=== PATIENT | female | born 1940 | race Caucasian/White ===

== ENCOUNTER 2019-02-28 06:00 | Day surgery (SDC) | payer MEDICARE, OTHER ==
[~2019-02-28] VITALS: Ht 167.6 cm; Wt 77.6 kg
[~2019-02-28 06:00] MED LIST: BYSTOLIC5 MG PO; CEFPODOXIME PR200 MG PO; COUMADIN2.5 MG PO; CYMBALTA60 MG PO; EUTHYROX112 MCG PO; EZALLOR SPRINKL20 MG PO; LOPERAMIDE2 MG PO; MIDODRINE HCL5 MG PO; PEPTO-BISM262 MG/15 PO; TYLENOL325 M1 PO; VENTOLIN HFA18 GM INH; VITAMIN D-32000 UNIT PO
--- NOTE | 2019-02-28 08:09 | NUR ---
02/28/19 0809 Anette Mckeon 0802- PT ARRIVES TO PACU NONAROUSABLE TO NOXIOUS STIMULI. RESP EVEN AND UNLABORED. OXYGEN SAT HIGH 90'S TO 100% ON 6L VIA MASK.
--- NOTE | 2019-03-02 10:32 | OR ---
[facility] [address], [place] [address] Signed DATE OF OPERATION: 02/28/2019 SURGEON: Librado Camacho MD PREOPERATIVE DIAGNOSES: 1. Chronic diarrhea. 2. Son with colon cancer in his 50s. POSTOPERATIVE DIAGNOSES: 1. 7 mm sessile polyp in proximal transverse colon (tattoo). 2. 5 mm polyp at 45 and 15 cm. 3. Icqibub-te-azbebqgy internal and external hemorrhoids. PROCEDURE: Colonoscopy with hot biopsy and random cold biopsies as well as injection of tattoo. ESTIMATED BLOOD LOSS: None. INDICATIONS: Epifanio is a 78-year-old female who had a previous stroke. She has had trouble with chronic diarrhea. However, seems worse recently. Consequently, this represents a change in bowel habits. She has been trying to use loperamide to control the diarrhea. She had been asked to see me for colonoscopy with biopsies. She thinks maybe she had a colonoscopy many years ago. She also explained that her son had colon cancer in his 50s. He seems to be doing fine now. She had come to the office with her caregiver. I gave them a pamphlet on colonoscopy. We looked at that together along with the risks including, but not limited to gas, bloating, crampy abdominal pain, bleeding, perforation requiring surgery, and missed diagnosis. We also discussed the need for IV conscious sedation. Given Epifanio's advanced age and medical issues, we asked that an anesthesia provider help us with increased monitoring and sedation with propofol. They had expressed understanding and wished to proceed. PROCEDURE NOTE: Epifanio was taken into our endoscopy suite and placed in the left lateral decubitus position. She was given IV sedation with propofol per our nurse data warehouse manager. A digital rectal exam was performed and she does have enveiop-kc-dsphqovv external hemorrhoids. The adult colonoscope was introduced and advanced all around into the cecum under direct visualization of camera without difficulty. Her prep was quite good. We could easily see the appendiceal orifice and the ileocecal valve. We had taken pictures throughout Electronically Signed By: LIBRADO CAMACHO MD 03/02/19 1032 PATIENT NAME: EPIFANIO BIRMINGHAM OPERATIVE REPORT DATE OF : 38 REPORT #: [id number] PHYSICIAN: LIBRADO CAMACHO MD PCP: UMAIR BECKWITH MD REPORT IS CONFIDENTIAL AND NOT TO BE RELEASED WITHOUT AUTHORIZATION [facility] [address] [place] [id number] Signed for photodocumentation. The scope was slowly withdrawn. We made several attempts to pass the scope into the terminal ileum without success. We had taken several biopsies throughout the colon for pathologic review. The above-mentioned polyps were easily removed with the help of hot biopsy forceps. We did inject a small tattoo next to the polypectomy site in the proximal transverse colon. We saw no diverticula. No inflammatory changes throughout the colon or rectum. Upon retroflexion of the scope, there were mryhmhi-ih-bmtzeifl internal hemorrhoids as well. After this, the gas was suctioned out and the colonoscope removed. Epifanio tolerated the procedure quite well. RECOMMENDATIONS: I will see Epifanio back in my office in 7 to 14 days to review her results. She can resume her Coumadin in 1 week. She should not take any aspirin or NSAIDs for one week. Her other chronic medications, she can resume today. Librado Camacho MD ALB/MODL /[id number] cc: MD Librado Dempsey MD Daniel C Hambleton, MD Copies: ENEIDA EDGAR MD,SHEFALI CAMACHO,WALLY SPIVEY MD, MD ~ Electronically Signed By: LIBRADO CAMACHO MD 03/02/19 1032 PATIENT NAME: EPIFANIO BIRMINGHAM OPERATIVE REPORT DATE OF : 38 REPORT #: [id number] PHYSICIAN: LIBRADO CAMACHO MD PCP: UMAIR BECKWITH MD REPORT IS CONFIDENTIAL AND NOT TO BE RELEASED WITHOUT AUTHORIZATION
--- NOTE | 2019-03-03 15:20 | PATH ---
[facility] [address] [place], [place] [address] Signed SPECIMEN(S): A COLON POLYP AT 45 CM SPECIMEN(S): B RANDOM COLON BIOPSY SPECIMEN(S): C PROXIMAL TRANSVERSE COLON BIOPSY SPECIMEN(S): D COLON POLYP AT 15 CM SPECIMEN SOURCE: A. COLON POLYP AT 45 CM B. RANDOM COLON BIOPSY C. PROXIMAL TRANSVERSE COLON BIOPSY D. COLON POLYP AT 15 CM CLINICAL HISTORY: Hx diarrhea. MICROSCOPIC DESCRIPTION: A, C, D. Histologic sections of all submitted blocks are examined by light microscopy. These findings, together with the gross examination, support the pathologic diagnosis. B. Sections reveal a biopsy of colonic mucosa. The epithelial surface is intact but has decreased mucus secreting ability. The basement membrane is not thickened. The glands are simple and tubular and reach all of the way to the muscularis mucosae. The lamina propria is minimally expanded by a population of plasma cells, lymphocytes, eosinophils and small numbers of neutrophils. One of the neutrophils extend into the mucosa proper. In a couple of areas there are excess intraepithelial lymphocytes. No ulceration, crypt abscesses, areas of fibrosis, granulomas or pseudomembranes are seen. LJA:cml FINAL PATHOLOGIC DIAGNOSIS: A. Mucosa, colon at 45 cm, biopsy: - Tubular adenoma. B. Mucosa, colon, random biopsies: - Mild active chronic colitis. (see comment) C. Mucosa, proximal transverse colon, biopsy: - Tubular adenoma with inflammatory features similar to that described above in B. D. Mucosa, colon at 15 cm, biopsy: - Tubular adenoma. COMMENT: PATIENT NAME: EPIFANIO BIRMINGHAM PATHOLOGY DATE OF : 38 REPORT #: [id number] PHYSICIAN: MELONIE COELHO PCP: UMAIR BECKWITH MD REPORT IS CONFIDENTIAL AND NOT TO BE RELEASED WITHOUT AUTHORIZATION [facility] [address] [place], [place] [address] Signed B -- The differential diagnosis includes both infectious and noninfectious causes of colitis, including microscopic colitis. Features are not consistent with Crohn's colitis or ulcerative colitis. Clinical correlation required. LJA:cml:C2NR GROSS DESCRIPTION: Four specimens are received in four containers, labeled "ELLY." A. The specimen, labeled "ELLY, colon polyp at 45 cm," is received in formalin and consists of two, 0.3 and 0.4 cm estrada fragments. Specimen is entirely submitted in cassette (A1). B. The specimen, labeled "ELLY, random colon biopsy," is received in formalin and consists of four, 0.1-0.2 cm estrada fragments. Specimen is entirely submitted in cassette (B1). C. The specimen, labeled "ELLY, proximal transverse colon biopsy," is received in formalin and consists of five, 0.2-0.3 cm estrada-brown fragments. Specimen is entirely submitted in cassette (C1). D. The specimen, labeled "ELLY, colon polyp at 15 cm," is received in formalin and consists of a single 0.3 cm estrada fragment. Specimen is entirely submitted in cassette (D1). AM (under the direct supervision of a pathologist) The Gross Description was prepared using a voice recognition system. The report was reviewed for accuracy; however, sound-alike word errors, addition and/or deletions may occur. If there is any question about this report, please contact Client Services. PERFORMING LABORATORY: The technical component was performed by [facility], [address] [place] [id number] (Wrapper Sheeter: Vanessa Rivera MD; CLIA# [id number]). Professional [facility], [address] [address] (Wrapper Sheeter: Jaleel Vee MD; CLIA# [id number]). Diagnostician: Jaleel Vee MD Pathologist Electronically Signed 03/03/2019 Copies: PATIENT NAME: EPIFANIO BIRMINGHAM PATHOLOGY DATE OF : 38 REPORT #: [id number] PHYSICIAN: MELONIE PATHOLOGY PCP: UMAIR BECKWITH MD REPORT IS CONFIDENTIAL AND NOT TO BE RELEASED WITHOUT AUTHORIZATION [facility] [address] [place], [place] [address] Signed ~ PATIENT NAME: EPIFANIO BIRMINGHAM PATHOLOGY DATE OF : 38 REPORT #: [id number] PHYSICIAN: MELONIE PATHOLOGY PCP: UMAIR BECKWITH MD REPORT IS CONFIDENTIAL AND NOT TO BE RELEASED WITHOUT AUTHORIZATION
== END 2019-02-28 08:45 | disposition home or self-care (01) ==
LOC: DS 06:00
PROVIDERS: Colon & Rectal Surgery
PROC: 0DBE8ZZ Excision of Large Intestine, Via Natural or Artificial Opening Endoscopic (ICD-10-PCS; 2019-02-28)
PROC: 3E0H8GC Introduction of Other Therapeutic Substance into Lower GI, Via Natural or Artificial Opening Endoscopic (ICD-10-PCS; 2019-02-28)
PROC: 0DBL8ZZ Excision of Transverse Colon, Via Natural or Artificial Opening Endoscopic (ICD-10-PCS; principal; 2019-02-28 06:45)
DX: D12.3 Benign neoplasm of transverse colon (principal); D12.6 Benign neoplasm of colon, unspecified; K52.9 Noninfective gastroenteritis and colitis, unspecified; K64.8 Other hemorrhoids; K64.4 Residual hemorrhoidal skin tags; I10 Essential (primary) hypertension; E78.5 Hyperlipidemia, unspecified; F32.9 Major depressive disorder, single episode, unspecified; I63.9 Cerebral infarction, unspecified; R06.02 Shortness of breath; F41.9 Anxiety disorder, unspecified; F03.90 Unspecified dementia, unspecified severity, without behavioral disturbance, psychotic disturbance, mood disturbance, and anxiety; Z98.890 Other specified postprocedural states; Z79.899 Other long term (current) drug therapy; Z79.01 Long term (current) use of anticoagulants
CPT/HCPCS: J2250; J2704; J3010; J7120